=== PATIENT | male | born 1950 | race African-American/Black ===

== ENCOUNTER 2022-11-30 22:33 | Emergency (ER) | payer BC, MEDICAID ==
[~2022-11-30] VITALS: Ht 170.2 cm; Wt 114.0 kg
[2022-11-30 23:18] LABS: CHLORIDE 81 mEq/L (98-107); HEMATOCRIT. 41.9 % (42.0-52.0); HEMOGLOBIN. 14.1 g/dL (14.0-18.0); MEAN CORPUSCULAR HEMOGLOBIN 30.9 pg (28.0-32.0); MEAN PLATELET VOLUME 7.3 fl (7.4-10.4); PLATELET 282 x1000/uL (130-400); RED BLOOD CELL COUNT 4.55 mill/uL (4.7-6.1)
[2022-11-30] MEDS ORDERED: FUROSEMIDE 40MG/4ML VIAL IVP ONE (23:45)
[2022-12-01 00:10] VITALS: BP 142/87
[2022-12-01 00:14] LABS: BG BASE EXCESS 8.8 mmol/L (-2.0-2.0); BG CARBOXYHEMOGLOBIN 0.8 % (0.5-1.5); BG DEOXYHEMOGLOBIN 0.2 % (0.0-5.0); BG FRACTION INSPIRED OXYGEN 100; BG HCO3 ACT 34.7 mmol/L (22.0-26.0); BG METHEMOGLOBIN 0.4 % (0.0-1.5); BG OXYGEN SATURATION 99.8 % (92.0-98.5); BG OXYHEMOGLOBIN 98.6 % (94.0-97.0); BG PCO2 51.9 mmHg (35.0-45.0); BG PH 7.443 (7.350-7.450); BG PO2 374.9 mmHg (75.0-100.0); BG TOTAL HEMOGLOBIN 14.8 g/dL (12.0-18.0); BG VENT MODE MASK - BIPAP
[2022-12-01] MEDS ORDERED: DIPHENHYDRAMINE 50MG/ML VIAL IV NR (01:00)
[2022-12-01 01:47] LABS: PLATELET ESTIMATE NORMAL
== END 2022-12-01 02:51 | disposition left against medical advice (07) ==
LOC: ER 22:33 → EDBEDREQTM 23:44 → EDBEDREQ 23:44 → SUPCPDRO 12-01 00:06 → ER 12-01 02:51 → ENRESERV 12-01 10:45 → CANBEDREQ 12-02 02:46
DX: R06.02 Shortness of breath (principal); I10 Essential (primary) hypertension; Z87.891 Personal history of nicotine dependence
CPT/HCPCS: 36415; 36600; 71045; 80053; 82375; 82805; 83880; 84484; 85025; 93005; 94660; 96374; 96375; 99291; J1200; J1940